=== PATIENT | female | born 1980 | race Caucasian/White ===

== ENCOUNTER 2018-01-02 09:27 | Emergency (ER) | payer OTHER ==
[2018-01-02 10:29] LABS: ABS Basophils 0.1 10^3/ul (0-0.2); ABS Eosinophils 0.2 10^3/ul (0-0.6); ABS Lymphocytes 1.7 10^3/ul (1.0-4.8); ABS Monocytes 0.8 10^3/ul (0-0.8); ABS Neutrophils 7.4 10^3/ul (1.5-7.7); ABS Nucleated RBC 0 10^3/ul; Eosinophil % 1.7 % (0-6); Hematocrit 38 % (35-47); Hemoglobin 13.1 g/dl (12.0-16.0); Lymphocyte % 16.7 % (25-47); Mean Corpuscular HGB Conc 34 g/dl (31-36); Mean Corpuscular Hemoglobin 30 pg (27-31); Mean Corpuscular Volume 86 fL (80-97); Mean Platelet Volume 8 um3 (7.4-10.4); Nucleated Red Blood Cells % 0; Platelet Count 318 10^3/ul (150-450); Red Blood Count 4.44 10^6/ul (4.0-5.4); Red Cell Distribution Width 14 % (10.5-15); White Blood Count 10.1 10^3/ul (3.5-10.8)
--- NOTE | 2018-01-02 11:30 | RAD ---
Indication: Red swollen tender soft tissues medial to the LEFT knee. Comparison: No relevant prior exams available on the [facility] [place] [facility] PACS for comparison. Technique: Ultrasound with Doppler soft tissues medial aspect LEFT knee. REPORT AND IMPRESSION: Long segment superficial thrombophlebitis documented with thrombosed vessels measuring up to 0.9 cm diameter. Surrounding soft tissue edema.
[2018-01-02 11:55] VITALS: BP 99/59
--- NOTE | 2018-01-02 12:06 | ED ---
Lower Extremity - HPI Summary HPI Summary: Patient is an otherwise healthy 12 week 37-year-old female who presents to the ED with left medial knee 7 x 7 cm erythema and warmth indurated area. 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 She was recently seen for similar, but no erythema and warmth just induration. Recently placed on a baby aspirin. She has never had something like this before. Endorses 2 out of 10 pain. She states the area was tingling with an enlarged thrombosed pain last evening, and upon wakening noticed the 7 x 7 cm indurated warm and read area. She denies any problems with her . She is unable to take ibuprofen due to her . Allergic to Tylenol. She has not taken anything for relief. Uses no compression stockings. Denies any other concerns at this time. Denies fevers, sweats, chills or any other systemic illness. - History of Current Complaint Chief Complaint: EDExtreElissaower Stated Complaint: 12 WEEKS PREG, LEG INJURY Time Seen by Provider: 01/02/18 09:41 Hx Obtained From: Patient Onset of Pain: Immediate Onset/Duration: Hours Severity Initially: Moderate Severity Currently: Moderate Pain Intensity: 7 Pain Scale Used: 0-10 Numeric Timing: Constant Location: Is Discrete @ - Left medial knee measuring 7 x 7 cm Character Of Pain: Aching Associated Signs And Symptoms: Positive: Swelling, Redness, Knee Pain Aggravating Factor(s): Standing, Ambulation Alleviating Factor(s): Rest Able to Bear Weight: No - Risk Factors Gout Risk Factors: Negative DVT Risk Factors: Septic Arthritis Risk Factor: Negative - Allergies/Home Medications Allergies/Adverse Reactions: Allergies Allergy/AdvReac Type Severity Reaction Status Date / Time MS Iodinated Contrast Media Allergy Severe Swelling Verified 01/02/18 09:35 [CONTRAST DYE] MS Levofloxacin Allergy Severe Anaphylatic Verified 01/02/18 09:35 [From Levaquin] Shock MS Acetaminophen Allergy Intermediate Hives Verified 01/02/18 09:35 [From Tylenol] MS Red Dye [Red Dye] Allergy Intermediate Hives Verified 01/02/18 09:35 Cherries Allergy Intermediate Hives Uncoded 01/02/18 09:35 Strawberries Allergy Intermediate Hives Uncoded 01/02/18 09:35 PMH/Surg Hx/FS Hx/Imm Hx Previously Healthy: Yes Endocrine/Hematology History: Denies: Hx Anticoagulant Therapy, Hx Diabetes, Hx Thyroid Disease Cardiovascular History: Denies: Hx Hypertension, Hx Pacemaker/ICD Respiratory History: Reports: Hx Asthma Denies: Hx Chronic Obstructive Pulmonary Disease (COPD) History: Denies: Hx Renal Disease Neurological History: Denies: Hx Dementia, Hx Seizures Psychiatric History: Denies: Hx Substance Abuse Infectious Disease History: No Infectious Disease History: Denies: Hx Hepatitis, Hx Human Immunodeficiency Virus (HIV), Traveled Outside the [place] in Last 30 Days - Social History Occupation: Employed Full-time Lives: With Family Alcohol Use: None Hx Substance Use: No Substance Use Type: Reports: None Hx Tobacco Use: No Smoking Status (MU): Never Smoked Tobacco Review of Systems Constitutional: Negative Negative: Fever, Chills, Fatigue, Skin Diaphoresis Eyes: Negative Cardiovascular: Negative Genitourinary: Negative Positive: no symptoms reported, see HPI Musculoskeletal: Negative Positive: Other - 7 x 7 cm indurated area to the left medial knee with warmth and erythema Neurological: Negative All Other Systems Reviewed And Are Negative: Yes Physical Exam Triage Information Reviewed: Yes Vital Signs On Initial Exam: Initial Vitals Temp Pulse Resp BP Pulse Ox 98.5 F 103 16 126/77 99 01/02/18 09:36 01/02/18 09:36 01/02/18 09:36 01/02/18 09:36 01/02/18 09:36 Vital Signs Reviewed: Yes Appearance: Positive: Well-Appearing, Well-Nourished Skin: Positive: Warm, Skin Color Reflects Adequate Perfusion, Other - 7 x 7 cm indurated area to the left medial knee with warmth and erythema Head/Face: Positive: Normal Head/Face Inspection Eyes: Positive: EOMI, EDDIE, Conjunctiva Clear Neck: Positive: No Lymphadenopathy Respiratory/Lung Sounds: Positive: Clear to Auscultation, Breath Sounds Present Cardiovascular: Positive: Pulses are Symmetrical in both Upper and Lower Extremities Musculoskeletal: Positive: Normal, Strength/ROM Intact Neurological: Positive: Speech Normal Psychiatric: Positive: Normal, Affect/Mood Appropriate AVPU Assessment: Alert Diagnostics - Vital Signs Vital Signs Temp Pulse Resp BP Pulse Ox 01/02/18 11:53 99 F 90 17 99/59 99 01/02/18 09:36 98.5 F 103 16 126/77 99 - Laboratory Lab Results: Lab Results 02/09/0901/02/18 01/02/18 Range/Units 10:15 10:15 10:15 WBC 10.1 (3.5-10.8) 10^3/ul RBC 4.44 (4.0-5.4) 10^6/ul Hgb 13.1 (12.0-16.0) g/dl Hct 38 (35-47) % MCV 86 (80-97) fL MCH 30 (27-31) pg MCHC 34 (31-36) g/dl RDW 14 (10.5-15) % Plt Count 318 (150-450) 10^3/ul MPV 8 (7.4-10.4) um3 Neut % (Auto) 72.8 (38-83) % Lymph % (Auto) 16.7 L (25-47) % Perry % (Auto) 8.2 (1-9) % Eos % (Auto) 1.7 (0-6) % Baso % (Auto) 0.6 (0-2) % Absolute Neuts (auto) 7.4 (1.5-7.7) 10^3/ul Absolute Lymphs (auto) 1.7 (1.0-4.8) 10^3/ul Absolute Monos (auto) 0.8 (0-0.8) 10^3/ul Absolute Eos (auto) 0.2 (0-0.6) 10^3/ul Absolute Basos (auto) 0.1 (0-0.2) 10^3/ul Absolute Nucleated RBC 0 10^3/ul Nucleated RBC % 0 Sodium 133 (133-145) mmol/L Potassium 3.5 (3.5-5.0) mmol/L Chloride 104 (101-111) mmol/L Carbon Dioxide 24 (22-32) mmol/L Anion Gap 5 (2-11) mmol/L BUN 6 (6-24) mg/dL Creatinine 0.55 (0.51-0.95) mg/dL Est GFR ( Amer) 158.2 (>60) Est GFR (Non-Af Amer) 123.0 (>60) BUN/Creatinine Ratio 10.9 (8-20) Glucose 79 (70-100) mg/dL Lactic Acid 1.1 (0.5-2.0) mmol/L Calcium 8.9 (8.6-10.3) mg/dL Total Bilirubin 0.40 (0.2-1.0) mg/dL AST 19 (13-39) U/L ALT 30 (7-52) U/L Alkaline Phosphatase 70 (34-104) U/L C-Reactive Protein 22.89 H (< 5.00) mg/L Total Protein 6.6 (6.4-8.9) g/dL Albumin 3.7 (3.2-5.2) g/dL Globulin 2.9 (2-4) g/dL Albumin/Globulin Ratio 1.3 (1-3) Result Diagrams: 01/02/18 10:15 01/02/18 10:15 Lab Statement: Any lab studies that have been ordered have been reviewed, and results considered in the medical decision making process. Lower Extremity Course/Dx - Course Course Of Treatment: During the course of treatment, the patient is evaluated for superficial thrombophlebitis versus venous thrombosis versus DVT. Given her history of varicosities, likely venous thrombosis, however due to her and increased risk for DVT, ultrasound obtained. Ultrasound impression: Long segment superficial thrombophlebitis documented with thrombosed vessels measuring up to 0.9 cm diameter. Surrounding soft tissue edema. The incidence of phlebitis and thrombosis of the lower extremities superficial veins of the first month of is significantly increased. This appears to be an uncomplicated case of thrombophlebitis. I have recommended supportive care including extremity elevation above the waist level , cool compresses, Awais wrap to the area, she is unable to take NSAIDs. She is encouraged to remain ambulatory if possible. She is already anticoagulated with 81 mg baby aspirin daily through her primary. There appears to be no other signs of worsening infection. I have discussed the need to return to the ED including worsening symptoms of erythema warmth fevers, sweats, chills. She agrees with this plan and voices no concerns at this time. - Diagnoses Provider Diagnoses: Superficial thrombophlebitis Discharge - Discharge Plan Condition: Stable Disposition: HOME Patient Education Materials: Superficial Thrombophlebitis (ED) Referrals: No Primary Care Phys,NOPCP [Primary Care Provider] - Additional Instructions: Care is supportive and consists of extremity elevation (ie, waist level), warm or cool compresses, nonsteroidal anti-inflammatory drugs (NSAIDs), and compression therapy. Remain ambulatory as much as possible.
== END 2018-01-02 11:53 | disposition home or self-care (01) ==
LOC: ED 09:27
DX: I80.02 Phlebitis and thrombophlebitis of superficial vessels of left lower extremity (principal); Z3A.12 12 weeks gestation of pregnancy; Z88.6 Allergy status to analgesic agent; Z88.3 Allergy status to other anti-infective agents; Z91.041 Radiographic dye allergy status
CPT/HCPCS: 36415; 80053; 83605; 85025; 86140; 99282